=== PATIENT | male | born 1960 | race Caucasian/White ===

== ENCOUNTER 2021-10-11 23:38 | Observation (INO) | payer OTHER, MEDICARE, SELFPAY ==
--- NOTE | ~2021-10-11 | XR_ITS ---
XR chest 1V portable 10/12/2021 00:24 Indication: Shortness of breath. Covid Infection. Procedure: AP portable chest Comparison: No prior studies for comparison. Findings: Status post median sternotomy for CABG. Heart size normal. There is bibasilar atelectasis. No focal pneumonia, pleural effusion, edema or pneumothorax. Impression: 1: Bibasilar atelectasis. Reviewed, dictated and finalized at location D. ENT PUSHER Impression: 1: Bibasilar atelectasis.
[2021-10-11 23:41] VITALS: BP 113/71; PULSE 88; RESP 25; TEMP 36.4; O2SAT 97
[2021-10-11 23:49] VITALS: O2SAT 97
[2021-10-12] VITALS (18 sets, daily range): BP systolic 108–136; BP diastolic 61–81; PULSE 71–112; RESP 16–25; TEMP 36.2–36.9; O2SAT 95–100
--- NOTE | 2021-10-12 00:08 | ED.GENADULT ---
HPI - General Adult General Chief complaint: Shortness of Breath/Dyspnea Stated complaint: sob Time Seen by Provider: 10/11/21 23:51 Source: patient Mode of arrival: ambulatory Limitations: no limitations History of Present Illness HPI narrative: Patient presents for evaluation of respiratory symptoms. He indicates he has had difficulty breathing for the last 1 to 2 weeks. He reports SOB, primarily when laying down. He has experienced an occasional nonproductive cough. He denies any leg swelling, chest pain, nausea, vomiting, fever or chills. He states he had a COVID test two days ago and was informed yesterday that the test was positive. His also tested positive for COVID. Tonight he requested she bring him to the ER for further evaluation after he had a near syncopal event when ambulating at home. He is not on home O2. He does not smoke. He has received his J+J COVID vaccine. He has been using mucinex with some improvement in his symptoms thereafter. He is a very poor historian. In terms of his past medical history, he is a very poor historian. After receiving informed consent from patient I contacted his and she provided me with patient's medication list which included medications for hypertension, gout, hyperlipidemia, diabetes mellitus type 2, hypokalemia, insomnia. Patient states that he has multiple specialists at [facility] including pulmonology for which he sees for a stable pulmonary nodule, cardiology, and nephrology for chronic kidney disease. He informs me that he had multiple vessel coronary bypass over a decade ago. He indicates he came to this facility tonight because he did not feel like he could make it all the way to [place] for evaluation. No additional complaints or concerns. Related Data Home Medications Medication Instructions Recorded Confirmed allopurinol 300 mg PO DAILY 10/12/21 aspirin 325 mg PO DAILY 10/12/21 clonidine HCl 0.1 mg PO TID 10/12/21 oraeogy-jfopeuzdio-RSN-caff 1 cap PO Q4-6H PRN 10/12/21 [Ascomp with Codeine] cyclobenzaprine [Flexeril] 10 mg PO TID PRN 10/12/21 empagliflozin [Jardiance] 10 mg PO BID 10/12/21 fenofibrate 150 mg PO DAILY 10/12/21 glipizide 10 mg PO DAILY 10/12/21 hydralazine 50 mg PO BID 10/12/21 insulin glargine U-300 conc 60 unit SUBCUT DAILY 10/12/21 [Toujessica Max U-300 SoloStar] isosorbide mononitrate [Imdur] 30 mg PO DAILY 10/12/21 lisinopril 30 mg PO DAILY 10/12/21 metformin 1,000 mg PO BID 10/12/21 metoprolol succinate 100 mg PO BID 10/12/21 omega 4-ubj-cql-fish oil [Fish Oil] 2 cap PO DAILY 10/12/21 potassium chloride 20 meq PO DAILY 10/12/21 ranolazine [Ranexa] 1,000 mg PO Q12H 10/12/21 rosuvastatin [Crestor] 5 mg PO DAILY 10/12/21 zolpidem 5 mg PO HS PRN 10/12/21 Allergies Allergy/AdvReac Type Severity Reaction Status Date / Time No Known Allergies Allergy Unknown Unverified 09/05/05 12:49 Review of Systems Review of Systems: CONSTITUTIONAL: Denies fever, chills, or sweats. EYES: Denies visual changes, redness, or discharge. ENT: Denies rhinorrhea, congestion, sore throat, or otalgia. CARDIOVASCULAR: Denies chest pain, palpitations, or edema. RESPIRATORY: Reports cough and shortness of breath GASTROINTESTINAL: Denies abdominal pain, nausea, vomiting, or diarrhea. GENITOURINARY: Denies dysuria or hematuria. SKIN: Denies rash or itching. MUSCULOSKELETAL: Denies back pain, joint pain, or myalgia. NEUROLOGIC: Reports feeling as though he may pass out earlier, now resolved. Denies headache, numbness, dizziness, or weakness. PSYCHIATRIC: Denies anxiety or depression. [facility] Past Medical History Medical History (Updated 10/12/21 @ 02:10 by Sheng Botello, STEPHANE, DEYVI) Chronic kidney disease Coronary artery disease Diabetes Gout Hyperlipidemia Hypertension Pulmonary nodule Surgical History Surgical History History of cholecystectomy Family His
[2021-10-12 00:37] LABS: Basophils Percent Auto 0.3 % (0.2-1.2); Eosinophils Percent Auto 0.1 % (0-4.4); Hematocrit 34.4 % (42.0-52.0); Hemoglobin 11.5 g/dL (14.0-18.0); Immature Granulocyte Absolute 0.05 K/mm3 (0.00-0.031); Immature Granulocyte Percent A 0.6 % (0-0.5); Lymphocytes Absolute Auto 0.93 K/mm3 (0.9-3.2); Mean Corpuscular HGB Conc 33.4 g/dl (32-36); Mean Corpuscular Hemoglobin 31.1 pg (26-34); Mean Platelet Volume 11.2 fl (7.4-10.4); Monocytes Absolute Auto 0.6 K/mm3 (0.1-0.6); Monocytes Percent Auto 7.9 % (2.6-8.5); Neutrophils Absolute Auto 6.2 K/mm3 (1.3-6.7); Neutrophils Percent Auto 79.1 % (45.5-73.1); Platelet Count Result 188 k/mm3 (150-375); Red Cell Distribution Width 14.2 % (11.5-14.5); White Blood Count 7.8 K/mm3 (4.5-10.0)
--- NOTE | 2021-10-12 00:48 | PC.NURSE ---
EDP Carry placed pt on 2L of 02 via nasal cannula for comfort.
[2021-10-12 00:50] LABS: Alanine Aminotransferase 28 U/L (4-50); Albumin Level 4.1 g/dL (3.5-5.1); Alkaline Phosphatase 40 U/L (38-126); Anion Gap 11 mmol/L (8-16); Aspartate Amino Transferase 36 U/L (17-59); Bilirubin,Total 0.7 mg/dL (0.2-1.3); Blood Urea Nitrogen 33 mg/dL (9-20); Calcium 8.9 mg/dL (8.4-10.2); Carbon Dioxide 23 mmol/L (22-30); Chloride 101 mmol/L (98-107); Estimated CRCL calculation 40 ml/min; Estimated Glomerular Filt Rate 36; Glucose 247 mg/dL (65-110); Potassium 3.7 mmol/L (3.4-5.0); Sodium 135 mmol/L (137-145)
[2021-10-12 00:51] LABS: INR 1.6; Prothrombin Time 18.3 Seconds (11.1-14.7)
[2021-10-12 00:52] LABS: Partial Thromboplastin Time 45.8 SECONDS (22.3-36.8)
[2021-10-12 00:54] LABS: D Dimer 0.39 ug/mL (<0.48)
[2021-10-12 01:26] LABS: Troponin I 0.066 ng/mL (0.000-0.034)
--- NOTE | 2021-10-12 01:45 | ECG_ITS ---
Measurements Intervals [place] Rate: 76 P: 48 NE: 151 QRS: -37 QRSD: 117 T: 107 QT: 424 QTc: 479 Interpretive Statements SINUS RHYTHM LEFT AXIS DEVIATION INCOMPLETE RIGHT BUNDLE BRANCH BLOCK BORDERLINE ST-T WAVE ABNORMALITY- ANT/HIGH LAT LEADS BASELINE ARTIFACT- I, II, III, AVR, AVL, AVF, V1-V6 BORDERLINE ECG Electronically Signed On 10-12-2021 6:48:02 DRYWALL FINISHER FOREMAN by Mike Chen D.O.
[2021-10-12] MEDS: ASPIRIN 325 MG TABLET PO (02:13)
[2021-10-12] MEDS: SODIUM CHLORIDE 0.9% IV 1,000 ML 75 ML IV CONT (03:32)
[2021-10-12 04:03] LABS: Troponin I 0.063 ng/mL (0.000-0.034)
--- NOTE | 2021-10-12 04:39 | PC.NURSE ---
pt tried to give urine sample, but was unable to void. pt declining straight catheter at this time.
--- NOTE | 2021-10-12 07:10 | PC.NURSE ---
report from angel mckee. pt deny complaints. waiting bed placement. pt denies needs at this time.
[2021-10-12 10:33] LABS: Glucose Point of Care 168 mg/dl (65-105)
--- NOTE | 2021-10-12 11:33 | ADMGEN ---
This patient, Joe Crook, was admitted to [facility] Surg Room 301-01. Patient oriented to hospital policies and general routines including ID bracelet, bed and alarms, visiting hours, pain management, procedures, bathroom and other care routines, personal items, smoking policy, room service/diet, and visiting hours. Information on how to activate the Rapid Response Team has been discussed. Patient are encouraged to report perceived risks to care and to ask questions if they do not understand what they are told or what they should do.
[2021-10-12 12:00] LABS: Hemoglobin A1C 7.4 % (<5.7)
[2021-10-12 12:03] LABS: Glucose Point of Care 205 mg/dl (65-105)
[2021-10-12] MEDS: INSULIN ASPART (*BKC) 100 UNITS/ML SUB-Q ×2 (13:02→18:19)
--- NOTE | 2021-10-12 15:03 | PM.IMHP ---
H&P: HPI History of Present Illness Date/Time: 10/12/21 15:03 Chief Complaint: Presyncope Narrative: Date of admission: 10/12/2021 Joe Crook is a 61-year-old male with a history of coronary artery disease s/p CABG, type 2 diabetes mellitus, hypertension, hyperlipidemia, and stage III CKD who presented to the emergency department on 10/12/2021 stating that he did not feel well, he was dizzy, and he could not breathe. Symptoms of dizziness and difficulty breathing were ongoing for 1 day. He notes that he was diagnosed with COVID-19 on 10/02/2021 and since that time had been feeling poorly. He noted that he has lost his sense of smell and therefore had not been eating or drinking as much. He thought that he might have become dehydrated. He also noted diarrhea ongoing for 1 week. Last night, when he got up to walk from one room in his house to another, he became very dizzy and felt that he might pass out. Therefore, he sat down and rested and the sensation passed. He never lost consciousness. He denies any episodes of chest pain. No diaphoresis, arm pain, jaw pain. He also felt short of breath last night and stated that he required some supplemental oxygen while in the ER, though this was never documented. On presentation to the emergency department, he was mildly tachypneic with additional vital signs stable, H&H mildly decreased, BUN and creatinine elevated, glucose 247, D-dimer within normal limits, troponin mildly elevated at 0.066, EKG without evidence of ST abnormalities, and CXR showed bibasilar atelectasis without focal pneumonia. At the time of my examination, he is feeling much better. He no longer endorses shortness of breath. He denies cough, wheezing, PABLO. He is no longer having diarrhea. He has not had any further episodes of dizziness or lightheadedness. He denies fever or chills. His appetite is good. Remains without chest pain. Review of Systems Review of Systems: All systems reviewed & are unremarkable except as noted in HPI and below PMFSH Past Medical History Medical History (Updated 10/12/21 @ 16:16 by Rosa Fuller PA-C) Chronic kidney disease Coronary artery disease Diabetes Gout Hyperlipidemia Hypertension Pulmonary nodule Surgical History Surgical History (Updated 10/12/21 @ 16:10 by Rosa Fuller PA-C) History of back surgery History of cholecystectomy History of coronary artery bypass graft Family History Family History (Updated 10/12/21 @ 16:10 by Rosa Fuller PA-C) Mother Diabetes mellitus Heart disease Father Diabetes mellitus Social History Social History (Updated 10/12/21 @ 16:12 by Rosa Fuller PA-C) Social History: The patient lives at home with his . 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 His primary care provider is Dr. Fabienne Woods. He designates his , Dolores, as his surrogate decision maker and he would like to be a full code. Smoking packs per day: 1 Smoking cigarettes per day: 20.0 Years smoked: 10 Smoking pack-years: 10.00 Smoking status: Former smoker Tobacco type: cigarettes Additional smoking assessment comments: Quit smoking >30 years ago Alcohol intake: never Substance use: never Living arrangements: with family Gender identity (if verbalized by the patient): Male Sexual Orientation (if Verbalized by the Patient): Straight or Heterosexual Spiritual care concerns: No Meds Home Medications and Allergies Home Medications Medication Instructions Recorded Confirmed Type allopurinol 300 mg PO DAILY 10/12/21 10/12/21 History aspirin 325 mg PO DAILY 10/12/21 10/12/21 History clonidine HCl 0.1 mg PO TID 10/12/21 10/12/21 History ylierde-wdaadjzsoz-NPQ-caff 1 cap PO Q4-6H PRN 10/12/21 10/12/21 History [Ascomp with Codeine] cyclobenzaprine [Flexeril] 10 mg PO TID PRN 10/12/21 10/12/21 History empagliflozin [Jardiance] 10 mg PO BID 10/12/21 10/12/21 History fenofibrate 150 mg PO DAILY 10/12
[2021-10-12 17:22] LABS: Glucose Point of Care 238 mg/dl (65-105)
[2021-10-12] MEDS: hydrALAZINE HCL 50 MG TABLET PO (18:20)
[2021-10-12] MEDS: METOPROLOL SUCCINATE EXT REL 100 MG TABCR PO (21:37)
[2021-10-12] MEDS: EMPAGLIFLOZIN 10 MG TABLET PO (21:37)
[2021-10-12] MEDS: guaiFENesin 12 HR 600 MG TABCR PO (21:37)
[2021-10-12] MEDS: RANOLAZINE 500 MG TAB.ER.12H 1000 MG PO (21:37)
[2021-10-12] MEDS: cloNIDine HCL 0.1 MG TABLET PO (21:38)
[2021-10-13] VITALS (13 sets, daily range): BP systolic 106–153; BP diastolic 63–98; PULSE 66–126; RESP 16–20; TEMP 35.9–37.3; O2SAT 93–99
[2021-10-13 01:39] LABS: Glucose Point of Care 271 mg/dl (65-105)
[2021-10-13] MEDS: ALBUTEROL SULFATE (*SP) INHALER 2 PUFF INHALATION ×3 (03:24→14:31)
[2021-10-13] MEDS: cloNIDine HCL 0.1 MG TABLET PO ×3 (05:26→20:57)
[2021-10-13 06:39] LABS: Basophils Percent Auto 0.3 % (0.2-1.2); Eosinophils Percent Auto 0.5 % (0-4.4); Hematocrit 33.5 % (42.0-52.0); Immature Granulocyte Absolute 0.04 K/mm3 (0.00-0.031); Immature Granulocyte Percent A 0.7 % (0-0.5); Lymphocytes Absolute Auto 1.22 K/mm3 (0.9-3.2); Lymphocytes Percent Auto 20.4 % (18.3-44.2); Mean Corpuscular HGB Conc 32.8 g/dl (32-36); Mean Corpuscular Hemoglobin 31.5 pg (26-34); Mean Platelet Volume 12.1 fl (7.4-10.4); Monocytes Absolute Auto 0.6 K/mm3 (0.1-0.6); Monocytes Percent Auto 9.7 % (2.6-8.5); Neutrophils Absolute Auto 4.1 K/mm3 (1.3-6.7); Neutrophils Percent Auto 68.4 % (45.5-73.1); Platelet Count Result 158 k/mm3 (150-375); Red Blood Count 3.49 M/mm3 (4.6-6.20); Red Cell Distribution Width 14.1 % (11.5-14.5)
[2021-10-13 07:04] LABS: Anion Gap 11 mmol/L (8-16); Blood Urea Nitrogen 32 mg/dL (9-20); Calcium 8.9 mg/dL (8.4-10.2); Carbon Dioxide 25 mmol/L (22-30); Chloride 102 mmol/L (98-107); Estimated CRCL calculation 45 ml/min; Estimated Glomerular Filt Rate 41; Glucose 163 mg/dL (65-110); Potassium 3.7 mmol/L (3.4-5.0); Sodium 138 mmol/L (137-145)
[2021-10-13 08:08] LABS: Glucose Point of Care 162 mg/dl (65-105)
[2021-10-13] MEDS: INSULIN GLARGINE (*BKC) 100 UNITS/ML 38 UNITS SUB-Q (09:28)
[2021-10-13] MEDS: ASPIRIN 325 MG TABLET PO (09:31)
[2021-10-13] MEDS: RANOLAZINE 500 MG TAB.ER.12H 1000 MG PO ×2 (09:31→20:56)
[2021-10-13] MEDS: guaiFENesin 12 HR 600 MG TABCR PO ×2 (09:31→20:55)
[2021-10-13] MEDS: ISOSORBIDE MONONITRATE 30 MG TAB.ER.24H PO (09:32)
[2021-10-13] MEDS: FENOFIBRATE NANOCRYSTALLIZED 145 MG TABLET PO (09:32)
[2021-10-13] MEDS: ROSUVASTATIN 5 MG TABLET PO (09:32)
[2021-10-13] MEDS: ENOXAPARIN 40 MG/0.4 ML SYRINGE SUB-Q (09:32)
[2021-10-13] MEDS: EMPAGLIFLOZIN 10 MG TABLET PO ×2 (09:32→18:21)
[2021-10-13] MEDS: hydrALAZINE HCL 50 MG TABLET PO ×2 (09:32→18:21)
[2021-10-13] MEDS: METOPROLOL SUCCINATE EXT REL 100 MG TABCR PO ×2 (09:33→20:55)
[2021-10-13] MEDS: POTASSIUM CHLORIDE 20 MEQ TABLET.ER PO (09:34)
[2021-10-13 11:57] LABS: Glucose Point of Care 251 mg/dl (65-105)
[2021-10-13] MEDS: INSULIN ASPART (*BKC) 100 UNITS/ML SUB-Q ×2 (12:26→18:19)
--- NOTE | 2021-10-13 14:43 | PM.IMPN ---
Progress Note: A&P Assessment and Plan (1) Pre-syncope: Code(s): R55 - Syncope and collapse Status: Acute Assessment and Plan: No lose of consciousness Suspect 2/2 dehydration due to poor oral intake and diarrhea Blood pressure stable S/p rehydration, encourage adequate p.o. intake Orthostatic blood pressures pending Fall precautions (2) Dehydration: Code(s): E86.0 - Dehydration Status: Acute Assessment and Plan: Secondary to poor p.o. 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 ?DENICE in the setting of dehydration Hold his metformin and lisinopril at this time Renally dose medications and avoid nephrotoxins Monitor (5) Diabetes: Code(s): E11.9 - Type 2 diabetes mellitus without complications Status: Acute Assessment and Plan: Hemoglobin A1c 7.4 Blood sugars 160s-270s Accu-Cheks, sliding scale insulin, hypoglycemic protocol Resume home Lantus with 20% dose reduction Continue home Jardiance Holding metformin and glipizide (6) Elevated troponin I level: Code(s): R77.8 - Other specified abnormalities of plasma proteins Status: Acute Assessment and Plan: Troponin is very mildly elevated with flat trend Reports he has been informed of elevated troponin levels in the past Asymptomatic EKG SR with incomplete BBB ACS not suspected (7) Hypertension: Code(s): I10 - Essential (primary) hypertension Status: Acute Assessment and Plan: Blood pressures stable Continue home clonidine and hydralazine Lisinopril on hold Monitor BP trends and adjust as needed Subjective Date/time seen: 10/13/21 14:43 Review of Systems Review of Systems: All systems reviewed & are unremarkable except as noted in HPI and below Exam Const: General: no acute distress, alert and awake Orientation/consciousness: patient oriented x3 HENMT: Head: normocephalic and atraumatic Ears: hearing grossly normal bilaterally and external ears normal Face and sinus: face symmetric Mouth: Yes Normal oral and palatal mucosa present Neck: Neck: full ROM, trachea midline and no JVD Resp: Effort & Inspection: normal respiratory effort Auscultation: clear to auscultation bilaterally Cardio: Jugular venous distension: no JVD Rate: regular rate Rhythm: regular rhythm Heart sounds: S1 normal heart sound present and S2 normal heart sound present GI: GI Palp: Yes Soft to palpation Auscultation: normal bowel sounds : General: Yes no CVA tenderness Skin: General skin exam: normal color Rashes: no rashes Neuro: General: patient oriented x3 Speech: normal speech Extrem: General: full ROM and no clubbing, cyanosis or edema Psych: Appearance: grossly normal Affect: normal affect Judgement: Good judgement present (Psych) Objective Data Vital Signs Vital Signs: Vital Signs - 24 hr 10/12/21 16:00 10/12/21 20:00 10/12/21 21:37 Temperature 36.4 C 36.9 C Pulse Rate 84 92 91 Respiratory Rate 18 20 Blood Pressure 135/64 122/69 Pulse Oximetry 95 95 10/13/21 00:00 10/13/21 04:00 10/13/21 08:00 Temperature 37.3 C 36.5 C 36.4 C L Pulse Rate 88 70 77 Respiratory Rate 18 20 16 Blood Pressure 134/63 131/65 134/76 Pulse Oximetry 96 97 93 10/13/21 08:31 10/13/21 09:33 10/13/21 11:58 Temperature 35.9 C L Pulse Rate 77 122 H Respiratory Rate 20 Blood Pressure 106/66 Pulse Oximetry 94 97 Intake/Outp
--- NOTE | 2021-10-13 17:03 | ECG_ITS ---
Measurements Intervals [place] Rate: 110 P: MI: 0 QRS: -55 QRSD: 125 T: 69 QT: 368 QTc: 498 Interpretive Statements ATRIAL FLUTTER/TACHYCARDIA WITH RAPID VENTRICULAR RESPONSE RIGHT BUNDLE BRANCH BLOCK BASELINE WANDER- V1-V3 LEFT ANTERIOR FASCICULAR BLOCK ABNORMAL ECG Electronically Signed On 10-13-2021 20:14:09 CLARK DRIVER by Mike Chen D.O.
[2021-10-13 17:07] LABS: Glucose Point of Care 270 mg/dl (65-105)
[2021-10-13 23:31] LABS: Glucose Point of Care 245 mg/dl (65-105)
[2021-10-14] VITALS (10 sets, daily range): BP systolic 101–137; BP diastolic 69–79; PULSE 83–118; RESP 16–18; TEMP 36–36.5; O2SAT 92–96
--- NOTE | 2021-10-14 | ECHO_ITS ---
Patient Info Name: Joe Crook Age: 61 years : 1960 Gender: Male Ht: 72 in Wt: 220 lbs BSA: 2.27 m2 HR: 83 bpm BP: 133 / 72 mmHg Technical Quality: Good Exam Date: 10/14/2021 8:40 AM Exam Location: [facility] Pulmonary Exam Room: 301 Patient Status: Outpatient Admit Date: 10/12/2021 Staff Ordering Physician: Helena Grace MD Commercial Sales Consultant: JUAN Attending Provider: Rosa Fuller PA-C Exam Type: CA echo doppler color flow Study Info Indications - ELEVATED TROP Complete two-dimensional, color flow and Doppler transthoracic echocardiogram is performed. Summary 1. Complete two-dimensional, color flow and Doppler transthoracic echocardiogram is performed. 2. Left ventricular systolic function is normal, estimated at 50-55%. 3. There is moderate concentric increased left ventricular wall thickness. 4. The left ventricular diastolic function is grade II diastolic dysfunction. 5. There is mild aortic valve sclerosis. 6. There is mild mitral valve regurgitation. 7. There is mild tricuspid valve regurgitation. 8. No pulmonary hypertension, estimated pulmonary arterial systolic pressure is 15 mmHg. Left Ventricle Left ventricular chamber dimension is normal. Left ventricular systolic function is normal, estimated at 50-55%. There is moderate concentric increased left ventricular wall thickness. Left ventricular septal wall motion is normal. The left ventricular diastolic function is grade II diastolic dysfunction. Right Ventricle Right ventricular chamber dimension is normal. Right ventricular systolic function is normal. Left Atria Left atrial chamber dimension is normal. Right Atria Right atrial chamber dimension is normal. Atrial Septum Intact interatrial septum visualized by color flow imaging. Aortic Valve The aortic valve is trileaflet. There is mild aortic valve sclerosis. There is no aortic valve stenosis. There is no aortic valve regurgitation. Pulmonic Valve The pulmonic valve is normal. There is no pulmonic valve stenosis. There is no pulmonic regurgitation. Mitral Valve The mitral valve has normal leaflets. There is no mitral valve stenosis. There is mild mitral valve regurgitation. Tricuspid Valve The tricuspid valve leaflets are normal. There is no significant tricuspid valve stenosis. There is mild tricuspid valve regurgitation. No pulmonary hypertension, estimated pulmonary arterial systolic pressure is 15 mmHg. Pericardium/Pleural The pericardium appears normal. There is no pericardial effusion. Inferior Vena Cava Normal inferior vena cava with >50% collapse upon inspiration consistent with normal right atrial pressure, 5 mmHg. Aorta The aortic root size at the sinus of Valsalva is normal. The prox ascending aorta size is normal. Left Ventricular Outflow Tract Name Value Normal LVOT 2D LVOT Diameter 2.4 cm LVOT Doppler LVOT Peak Gradient 7 mmHg LVOT Mean Gradient 3 mmHg LVOT VTI 17 cm LVOT VTI/AV VTI Ratio
[2021-10-14] MEDS: ALBUTEROL SULFATE (*SP) INHALER 2 PUFF INHALATION ×3 (02:37→15:02)
[2021-10-14] MEDS: cloNIDine HCL 0.1 MG TABLET PO (06:43)
[2021-10-14 08:36] LABS: Glucose Point of Care 175 mg/dl (65-105)
[2021-10-14 08:56] LABS: Anion Gap 14 mmol/L (8-16); Blood Urea Nitrogen 34 mg/dL (9-20); Calcium 9.4 mg/dL (8.4-10.2); Carbon Dioxide 22 mmol/L (22-30); Chloride 102 mmol/L (98-107); Estimated CRCL calculation 42 ml/min; Estimated Glomerular Filt Rate 38; Glucose 169 mg/dL (65-110); Potassium 3.9 mmol/L (3.4-5.0); Sodium 138 mmol/L (137-145)
[2021-10-14] MEDS: glipiZIDE 5 MG TABLET 10 MG PO (10:29)
[2021-10-14] MEDS: ASPIRIN 325 MG TABLET PO (10:29)
[2021-10-14] MEDS: lisinopriL 10 MG TABLET 30 MG PO (10:30)
[2021-10-14] MEDS: METOPROLOL SUCCINATE EXT REL 100 MG TABCR PO (10:30)
[2021-10-14] MEDS: hydrALAZINE HCL 50 MG TABLET PO (10:30)
[2021-10-14] MEDS: OMEGA 3 POLYUNSAT FATTY ACIDS 1 GM CAP 2 GM PO (10:30)
[2021-10-14] MEDS: RANOLAZINE 500 MG TAB.ER.12H 1000 MG PO (10:30)
[2021-10-14] MEDS: ROSUVASTATIN 5 MG TABLET PO (10:30)
[2021-10-14] MEDS: POTASSIUM CHLORIDE 20 MEQ TABLET.ER PO (10:30)
[2021-10-14] MEDS: allopurinoL 300 MG TABLET PO (10:30)
[2021-10-14] MEDS: EMPAGLIFLOZIN 10 MG TABLET PO (10:30)
[2021-10-14] MEDS: guaiFENesin 12 HR 600 MG TABCR PO (10:30)
[2021-10-14] MEDS: ISOSORBIDE MONONITRATE 30 MG TAB.ER.24H PO (10:30)
[2021-10-14] MEDS: FENOFIBRATE NANOCRYSTALLIZED 145 MG TABLET PO (10:30)
[2021-10-14] MEDS: INSULIN GLARGINE (*BKC) 100 UNITS/ML 38 UNITS SUB-Q (10:32)
[2021-10-14] MEDS: ENOXAPARIN 40 MG/0.4 ML SYRINGE SUB-Q (10:32)
--- NOTE | 2021-10-14 10:43 | PM.CNCAR ---
Assessment and Plan Assessment and plan (1) Elevated troponin I level: Code(s): R77.8 - Other specified abnormalities of plasma proteins Status: Acute Assessment and Plan: Minor troponin elevation in a patient with known severe coronary disease as described above. Some slight ST depression was noted on EKG while he was in AFib RVR but he has been asymptomatic, with no chest pain. There has been no ACS. I think this is a nonspecific troponins build due to nonischemic myocardial injury from his overall illness and chronic CAD. Okay for discharge from my point of view. Follow-up with Dr. Conn (2) PAF (paroxysmal atrial fibrillation): Code(s): I48.0 - Paroxysmal atrial fibrillation Status: Acute Assessment and Plan: Patient is showing that he has ongoing PAF, sometimes with RVR specially when up and about. Looks like he may have missed a dose or so of metoprolol during his admission. I will give him an extra 25 mg p.o. now and continue metoprolol XL 100 mg b.i.d. he was started on Eliquis recently as an outpatient but was not listed on his home meds so it has not been continued; will resume Eliquis. (3) Coronary artery disease: Code(s): I25.10 - Atherosclerotic heart disease of [place] coronary artery without angina pectoris Status: Acute Assessment and Plan: History of coronary disease, CABG, overall has done well despite occlusion of his saphenous venous grafts. Stable. (4) COVID: Code(s): U07.1 - COVID-19 Status: Acute Assessment and Plan: Patient seems to be weathering his COVID infection reasonably well, not requiring oxygen. Treatment per hospitalist. History of Present Illness History of Present Illness Consult date/time: 10/14/21 10:43 Requesting physician: Kellie Briscoe Consult reason: Other (History of CABG, elevated troponins) Reason For Visit: Elevated Trop, DENICE Narrative: Joe Boyer this 61-year-old male with history of CAD and CABG admitted with COVID pneumonia, whom we were asked to see at the request of the hospitalist for advice and opinion regarding his mild troponin elevation. He also has history of chronic kidney disease, diabetes, hypertension, paroxysmal atrial fibrillation and hyperlipidemia. The patient was admitted through the emergency room 10/02/2021 with shortness of breath and COVID pneumonia; he tested positive on October 02, 2021. He has not been eating or drinking and had diarrhea. He has been dizzy, presyncopal and short of breath. He was admitted with dehydration, acute kidney injury and COVID pneumonia but is no longer on O2. His troponins are: 0.066 and 0.063. He has been having PAF w/ HR 100-120 BPM. The patient wants to go home; he is feeling fine and back to his normal self. He is not short of breath, and there has been no chest pain or angina. Records from his implementation director, Dr. Conn, were reviewed. He was last seen September 14, 2021. History of CABG, but the 4 saphenous vein grafts are occluded and the only residual remaining graft is a MINOR to the Left anterior descending. The [place] Left anterior descending is subtotally occluded, mid circumflex and ostial RCA are occluded as well, but he had a ejection fraction of 50-55% by echo in August 2019. He was hospitalized apparently sometime recently? with sepsis from UTI, acute renal failure at [facility] and had AFib RVR. Echo at that time apparently showed a reduced ejection fraction and he had some CHF. He has been treated with metoprolol XL 100 mg b.i.d. and Eliquis was added at the time of that office visit. He was in AFib rate in the 90s at that time. Telemetry shows AFib heart rate 100-115, briefly up to 120-130 at times. Review of Systems Constitutional: Constitutional: Reports no additional constitutional complaints Eyes: Eyes: Reports no
[2021-10-14 11:57] LABS: Glucose Point of Care 253 mg/dl (65-105)
[2021-10-14] MEDS: METOPROLOL TARTRATE 25 MG TABLET PO (12:48)
--- NOTE | 2021-10-14 14:30 | PM.DS ---
DS: Admitting Diagnosis Discharge Date 10/14/2021 Admitting Diagnosis Presyncope DS: Discharge Diagnosis Discharge Diagnosis (1) Pre-syncope: Code(s): R55 - Syncope and collapse Status: Acute Assessment and Plan: Patient episode of dizziness upon standing and felt that he might pass out. He was able to sit down the sensation passed without incident. He did not lose consciousness. This was likely due to dehydration secondary to poor oral intake and diarrhea. Blood pressure remains stable, he was not orthostatic. He was rehydrated with IV fluids and was euvolemic on exam. Adequate oral intake encouraged. Fall precautions implemented. (2) Dehydration: Code(s): E86.0 - Dehydration Status: Acute Assessment and Plan: Secondary to poor p.o. intake and diarrhea. Please see above. He received IV fluids and was adequately rehydrated. (3) COVID: Code(s): U07.1 - COVID-19 Status: Acute Assessment and Plan: Reports he tested positive for COVID-19 on 10/02/2021. CXR reviewed without findings consistent for pneumonia. He denied have any oxygen requirements and maintain adequate O2 sats on room air. No COVID-19 specific therapy initiated given his lack of oxygen requirements and onset of illness. He did complete [employer] vaccine in April 2021. Supportive care provided including bronchodilators and expectorants. (4) Chronic kidney disease: Code(s): N18.9 - Chronic kidney disease, unspecified Status: Acute Assessment and Plan: No prior labs available to establish baseline, though he reports history of CKD stage 3. He is established with a quality assurance monitor chassis. Initially concerned that he may have some DENICE given his dehydration, though he had no change in his renal function with rehydration, suggesting that he is at his baseline. Continue to follow with Nephrology as an outpatient. (5) Diabetes: Code(s): E11.9 - Type 2 diabetes mellitus without complications Status: Acute Assessment and Plan: Hemoglobin A1c is 7.4. Blood sugars manage with Accu-Cheks, sliding scale insulin, hypoglycemic protocol during admission. Continue home regimen on discharge including Lantus, Jardiance, metformin, glipizide. Monitor blood sugars with meals. (6) Elevated troponin I level: Code(s): R77.8 - Other specified abnormalities of plasma proteins Status: Acute Assessment and Plan: Troponin mildly elevated with flat trend. The patient was asymptomatic without chest pain. Suspect this to be chronic. He does have a history of severe coronary artery disease. He was seen in consultation by Cardiology. Acute coronary syndrome not suspected. He will need to follow-up with his carding machine feeder, Dr. Conn (7) Hypertension: Code(s): I10 - Essential (primary) hypertension Status: Acute Assessment and Plan: Blood pressures were well controlled with home regimen. Continue clonidine, hydralazine, lisinopril. (8) PAF (paroxysmal atrial fibrillation): Code(s): I48.0 - Paroxysmal atrial fibrillation Status: Acute Assessment and Plan: With occasional episodes of rapid ventricular response, especially when he is mobile. He did receive an extra 25 mg of metoprolol tartrate per Cardiology and his metoprolol succinate 100 mg b.i.d. was continued. Rate seem to improve with this. Home Eliquis to be continued. Follow-up with his carding machine feeder. DS: Summary Hospital Course Hospital Course: Date of admission: 10/12/2021 Date of discharge: 10/14/2021 Joe Crook is a 61-year-old male with a history of coronary artery disease s/p CABG, type 2 diabetes mellitus, hypertension, hyperlipidemia, and stage III CKD who presented to the emergency department on 10/12/2021 with complaints of dizziness and shortness of breath. On presentation to the emergency department, he was mildly tachypneic with additional
== END 2021-10-14 16:00 | disposition home or self-care (01) ==
LOC: ANHED 10-12 02:11 → ANH3MEDSUR 10-12 04:34
PROVIDERS: Physician Assistant; Admitting Provider Internal Medicine; Emergency Provider Nurse Practitioner; PCP Internal Medicine; Visit Provider Internal Medicine
DX: U07.1 COVID-19 (principal); R55 Syncope and collapse; E86.0 Dehydration; I25.10 Atherosclerotic heart disease of native coronary artery without angina pectoris; I48.0 Paroxysmal atrial fibrillation; I12.9 Hypertensive chronic kidney disease with stage 1 through stage 4 chronic kidney disease, or unspecified chronic kidney disease; E11.22 Type 2 diabetes mellitus with diabetic chronic kidney disease; N18.30 Chronic kidney disease, stage 3 unspecified; E78.5 Hyperlipidemia, unspecified; R77.8 Other specified abnormalities of plasma proteins; Z95.1 Presence of aortocoronary bypass graft; Z79.84 Long term (current) use of oral hypoglycemic drugs; Z79.899 Other long term (current) drug therapy; Z79.4 Long term (current) use of insulin
CPT/HCPCS: 36415; 71045; 80048; 80053; 82948; 83036; 84484; 85025; 85380; 85610; 85730; 93005; 93306; 94640; 96360; 96361; 96372; 99285; A9270; G0378; J1650; J1815; J7030

== ENCOUNTER 2023-03-21 12:11 | Inpatient (IN) | payer OTHER, MEDICARE, SELFPAY ==
[2023-03-21] VITALS (22 sets, daily range): BP systolic 117–177; BP diastolic 70–97; PULSE 113–140; RESP 11–29; TEMP 36.4–36.9; O2SAT 95–100; BMI 32.5
--- NOTE | 2023-03-21 12:20 | ECG_ITS ---
Measurements Intervals [place] Rate: 133 P: ND: 0 QRS: -77 QRSD: 129 T: 23 QT: 332 QTc: 496 Interpretive Statements ATRIAL FIBRILLATION WITH RAPID VENTRICULAR RESPONSE RIGHT BUNDLE BRANCH BLOCK INFERIOR INFARCT, AGE INDETERMINATE BASELINE WANDER- II, III, AVF ABNORMAL ECG COMPARED TO ECG 10/13/2021 17:22:09 ATRIAL FIBRILLATION NOW PRESENT MYOCARDIAL INFARCT FINDING NOW PRESENT Electronically Signed On 03-21-2023 14:13:08 CDT by Mike Chen D.O.
[2023-03-21] MEDS: SODIUM CHLORIDE 0.9% IV 1,000 ML 999 ML IV CONT (12:26)
[2023-03-21 12:49] LABS: Alanine Aminotransferase 25 U/L (6-50); Albumin Level 3.3 g/dL (3.5-5.1); Alkaline Phosphatase 32 U/L (38-126); Anion Gap 11 mmol/L (8-16); Aspartate Amino Transferase 30 U/L (17-59); Bilirubin,Total 0.7 mg/dL (0.2-1.3); Blood Urea Nitrogen 25 mg/dL (9-20); Calcium 7.8 mg/dL (8.4-10.2); Carbon Dioxide 20 mmol/L (22-30); Chloride 109 mmol/L (98-107); Estimated CRCL calculation 43 ml/min; Estimated Glomerular Filt Rate 34; Glucose 260 mg/dL (65-110); Potassium 3.9 mmol/L (3.4-5.0); Sodium 140 mmol/L (137-145)
[2023-03-21 12:51] LABS: INR 1.2; Prothrombin Time 16.3 Seconds (11.1-14.7)
[2023-03-21 13:04] LABS: Basophils Absolute Auto 0.1 K/mm3 (0.0-0.1); Basophils Percent Auto 0.8 % (0.2-1.2); Eosinophils Absolute Auto 0.1 K/mm3 (0-0.3); Eosinophils Percent Auto 0.4 % (0-4.4); Hematocrit 28.9 % (42.0-52.0); Hemoglobin 8.8 g/dL (14.0-18.0); Immature Granulocyte Absolute 0.13 K/mm3 (0.00-0.031); Immature Granulocyte Percent A 1.1 % (0-0.5); Lymphocytes Absolute Auto 1.67 K/mm3 (0.9-3.2); Lymphocytes Percent Auto 13.6 % (18.3-44.2); Mean Corpuscular HGB Conc 30.4 g/dl (32-36); Mean Corpuscular Volume 98.6 fl (80-100); Mean Platelet Volume 11.7 fl (7.4-10.4); Monocytes Absolute Auto 0.8 K/mm3 (0.1-0.6); Monocytes Percent Auto 6.2 % (2.6-8.5); Neutrophils Absolute Auto 9.5 K/mm3 (1.3-6.7); Neutrophils Percent Auto 77.9 % (45.5-73.1); Platelet Count Result 299 k/mm3 (150-375); Red Blood Count 2.93 M/mm3 (4.6-6.20); Red Cell Distribution Width 15.9 % (11.5-14.5); White Blood Count 12.2 K/mm3 (4.5-10.0)
--- NOTE | 2023-03-21 13:24 | ED.GIBLEED ---
HPI - GI Bleed General Chief complaint: GI Bleed Stated complaint: syncope Source: patient Mode of arrival: EMS Limitations: no limitations History of Present Illness HPI Narrative: 62-year-old with a history of A-fib, CAD s/p CABG 12 years ago on Ranexa, here with a syncopal episode this morning. Patient states that he had colonoscopy with polypectomy yesterday at [facility] by Dr. Bae. This morning he had bright red blood associated with some clots and black-colored stool. As per EMS he has initial systolic blood pressure was in the high 60s but the bolus of fluid is back to normal. He complains of chest pain, abdominal pain. He denies any nausea or vomiting or shortness of breath. Did discuss with Dr. Bae as per the colonoscopy report patient has diverticular disease in the descending colon as well as the sigmoid. He had 3 polyps in the cecum one was 2 cm, 1 cm and 5 mm all 3 were removed with snare. Patient states that he has not taken his medication this morning. MD complaint: gross hematochezia Onset (ago): hour(s) (2) Pain Consistency: constant Severity: moderate Relieving factors: none Exacerbating factors: none Context: anticoagulant use and other (Recent polypectomy) Treatments Prior to Arrival: none Related Data Home Medications Medication Instructions Recorded Confirmed allopurinol 300 mg tablet 300 mg PO DAILY 10/12/21 10/12/21 aspirin 325 mg tablet 325 mg PO DAILY 10/12/21 10/12/21 clonidine HCl 0.1 mg tablet 0.1 mg PO TID 10/12/21 10/12/21 cyclobenzaprine 10 mg tablet 10 mg PO TID PRN Pain 10/12/21 10/12/21 empagliflozin 10 mg tablet 10 mg PO BID 10/12/21 10/12/21 (Jardiance) fenofibrate 150 mg capsule 150 mg PO DAILY 10/12/21 10/12/21 glipizide 5 mg tablet 10 mg PO DAILY 10/12/21 10/12/21 hydralazine 50 mg tablet 50 mg PO BID 10/12/21 10/12/21 insulin glargine U-300 conc 300 60 unit subcut DAILY 10/12/21 10/12/21 unit/mL (3 mL) subcutaneous pen (Toujeo Max U-300 SoloStar) isosorbide mononitrate 30 mg 30 mg PO DAILY 10/12/21 10/12/21 tablet,extended release 24 hr lisinopril 30 mg tablet 30 mg PO DAILY 10/12/21 10/12/21 metformin 1,000 mg tablet 1,000 mg PO BID 10/12/21 10/12/21 metoprolol succinate 100 mg 100 mg PO BID 10/12/21 10/12/21 capsule sprinkle, ext. release 24 hr omega 5-asn-xag-fish oil 1,000 mg 2 cap PO DAILY 10/12/21 10/12/21 (120 mg-180 mg) capsule (Fish Oil) potassium chloride 20 mEq 20 meq PO DAILY 10/12/21 10/12/21 tablet,extended release ranolazine 500 mg tablet,extended 1,000 mg PO Q12H 10/12/21 10/12/21 release,12 hr (Ranexa) rosuvastatin 5 mg tablet (Crestor) 5 mg PO DAILY 10/12/21 10/12/21 zolpidem 5 mg tablet 5 mg PO HS PRN difficulty sleeping 10/12/21 10/12/21 apixaban 5 mg tablet (Eliquis) 5 mg PO BID 10/14/21 10/14/21 Allergies Allergy/AdvReac Type Severity Reaction Status Date / Time No Known Allergies Allergy Unknown Verified 10/12/21 11:17 Review of Systems Review of Systems: All systems reviewed & are unremarkable except as noted in HPI and below Constitutional: Constitutional: Reports no additional constitutional complaints Eyes: Eyes: Reports no additional eye complaints ENT: Reports system reviewed and no additional complaints, except as documented Cardiovascular: Cardiovascular: Reports no additional cardiovascular complaints Respiratory: Respiratory: Reports no additional respiratory complaints Gastrointestinal: Gastrointestinal: Reports as per HPI Genitourinary: Genitourinary: Reports no additional male genitourinary complaints Musculoskeletal: Musculoskeletal: Reports no additional musculoskeletal complaints Neurologic: Reports system reviewed and no additional complaints, except as documented Endocrine: Endocrine: Reports no additional endocrine complaints Hematologic/Lymphatic: Hematologic/Lymphatic: Reports no additional hematologic/lymphatic complaints [facility] Past Medical History Medical History (Rev
[2023-03-21] MEDS: ONDANSETRON INJ 4 MG/2 ML VIAL IV PUSH (13:34)
[2023-03-21] MEDS: MORPHINE SULFATE (*CRX) 4 MG/ML INJ IV PUSH ×2 (13:35→14:54)
[2023-03-21] MEDS: LACTATED RINGERS 1,000 ML 125 ML IV CONT ×2 (14:53→20:07)
[2023-03-21] MEDS: METOPROLOL TARTRATE INJ 5 MG/5 ML VIAL 2.5 MG IV PUSH (14:53)
--- NOTE | 2023-03-21 15:01 | ADMGEN ---
This patient, Joe Crook, was admitted to IMU Room 201-01. Patient/family oriented to hospital policies and general routines including ID bracelet, bed and alarms, visiting hours, pain management, procedures, bathroom and other care routines, personal items, smoking policy, room service/diet, and visiting hours. Information on how to activate the Rapid Response Team has been discussed. Patient/Family are encouraged to report perceived risks to care and to ask questions if they do not understand what they are told or what they should do.
[2023-03-21 15:38] LABS: Hematocrit 28.3 % (42.0-52.0); Hemoglobin 8.6 g/dL (14.0-18.0)
[2023-03-21 16:38] LABS: Glucose Point of Care 177 mg/dl (65-105)
--- NOTE | 2023-03-21 16:58 | WPDGICN ---
Assessment and Plan Assessment and plan (1) Acute lower gastrointestinal bleeding: Code(s): K92.2 - Gastrointestinal hemorrhage, unspecified Status: Acute Assessment and Plan: This bleeding is most likely secondary to polypectomy given the fact that it began last 24 hours after the procedure. I explained the patient that in many cases this will stop spontaneously similar to a nose bleed. Will need to observe him at least 24 hours I will start clear liquid diet I explained him that he may need to have a colonoscopy for cautery H&H will be followed serially (2) Atrial fibrillation with rapid ventricular response: Code(s): I48.91 - Unspecified atrial fibrillation Status: Acute Assessment and Plan: Anticoagulant will be held while he is here. Apparently he takes Ranexa. (3) Coronary artery disease: Code(s): I25.10 - Atherosclerotic heart disease of [place] coronary artery without angina pectoris Status: Acute Assessment and Plan: He has history of coronary artery bypass graft. He tells me that he has had chest pain since he came here. He states that the emergency room physician gave morphine which reduce the amount of pain he has but it has not completely gone away. (4) Anticoagulant long-term use: Code(s): Z79.01 - detention (current) use of anticoagulants Status: Acute Assessment and Plan: Anticoagulant was held for 2 days prior to the colonoscopy and will be restarted when appropriate. (5) Syncope: Qualifiers: Syncope type: unspecified Qualified Code(s): R55 - Syncope and collapse Code(s): R55 - Syncope and collapse Status: Acute Assessment and Plan: This morning he had a syncopal episode in the bathroom. EMS found his blood pressure low but it improved with bolus of IV fluids GI Consult Note Consult date/time: 03/21/23 16:58 HPI: Joe Crook is a 62 year old male presented to the emergency room this morning but due to the fact that he had a syncopal episode and was passing blood per rectum. Yesterday he underwent a colonoscopy by Dr. eBthany connolly in [place]. Three polyps were removed from the cecum. Dr. Bethany connolly spoke to the emergency room physician reported that the largest polyp was 2 cm diameter. The patient has been on a anticoagulant because of atrial fibrillation and coronary artery disease. He had not yet restarted it. He denies abdominal pain or nausea or vomiting. He does complain of pain in his chest and in the emergency room was given morphine which she says has cut the pain although has not completely gone. His words his ?heart is hurting? His hemoglobin on arrival in emergency room was 8.8. The last count we have on record here was from 2 years ago when it was 11. The patient had 3 episodes of passing nothing but blood this morning, 1 at 7:00 a.m., 1 at 9:00 a.m. and 1:11 a.m.. He has not seen blood since arrival to the hospital. He is thirsty wishes to have something to drink. Review of Systems Review of Systems: All systems reviewed & are unremarkable except as noted in HPI and below PMFSH Past Medical History Medical History Chronic kidney disease Coronary artery disease History of CABG x5. Follow-up catheterization showed patent MINOR to the Left anterior descending but occlusion of the 4 vein grafts. [place] Left anterior descending is subtotally occluded, mid circumflex and ostial RCA are also occluded. EF 50-55% in January 2019. Diabetes Gout Hyperlipidemia Hypertension PAF (paroxysmal atrial fibrillation) Pulmonary nodule Surgical History Surgical History History of back surgery History of cholecystectomy History of coronary artery bypass graft Family History Family History Mother Diabetes mellitus Heart disease Fat
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
--- NOTE | 2023-03-21 18:29 | ECG_ITS ---
Measurements Intervals [place] Rate: 126 P: [place]: 0 QRS: -70 QRSD: 142 T: 29 QT: 335 QTc: 485 Interpretive Statements ATRIAL FIBRILLATION WITH RAPID VENTRICULAR RESPONSE RIGHT BUNDLE BRANCH BLOCK LEFT ANTERIOR FASCICULAR BLOCK BASELINE ARTIFACT- I, II, III, AVR, AVL, AVF ABNORMAL ECG COMPARED TO ECG 03/21/2023 12:23:41 NO SIGNIFICANT CHANGES Electronically Signed On 03-22-2023 6:46:32 CDT by Mike Chen D.O.
[2023-03-21 19:02] LABS: Hematocrit 27.4 % (42.0-52.0); Hemoglobin 8.5 g/dL (14.0-18.0)
[2023-03-21 19:26] LABS: Troponin I 0.316 ng/mL (0.000-0.034)
[2023-03-21 19:47] LABS: Glucose Point of Care 155 mg/dl (65-105)
[2023-03-21] MEDS: METOPROLOL TARTRATE 50 MG TAB 100 MG PO (20:07)
[2023-03-21 21:05] LABS: Hematocrit 25.3 % (42.0-52.0); Hemoglobin 7.7 g/dL (14.0-18.0)
[2023-03-21 21:42] LABS: Troponin I 0.746 ng/mL (0.000-0.034)
[2023-03-22] VITALS (16 sets, daily range): BP systolic 106–150; BP diastolic 55–85; PULSE 82–122; RESP 18–22; TEMP 36–36.8; O2SAT 95–100
[2023-03-22 05:58] LABS: Glucose Point of Care 146 mg/dl (65-105)
--- NOTE | 2023-03-22 06:27 | PC.NURSE ---
Paper documentation exists on this patient due to [facility] downtime on 03/21/23 2100- 03/22/23 0637
[2023-03-22 06:48] LABS: Basophils Absolute Auto 0.2 K/mm3 (0.0-0.1); Basophils Percent Auto 1.8 % (0.2-1.2); Eosinophils Absolute Auto 0.1 K/mm3 (0-0.3); Eosinophils Percent Auto 0.8 % (0-4.4); Hemoglobin 7.6 g/dL (14.0-18.0); Immature Granulocyte Absolute 0.08 K/mm3 (0.00-0.031); Immature Granulocyte Percent A 0.9 % (0-0.5); Lymphocytes Percent Auto 26.8 % (18.3-44.2); Mean Corpuscular HGB Conc 29.2 g/dl (32-36); Mean Corpuscular Hemoglobin 29.7 pg (26-34); Mean Corpuscular Volume 101.6 fl (80-100); Mean Platelet Volume 11.9 fl (7.4-10.4); Monocytes Absolute Auto 0.8 K/mm3 (0.1-0.6); Monocytes Percent Auto 8.8 % (2.6-8.5); Neutrophils Absolute Auto 5.4 K/mm3 (1.3-6.7); Neutrophils Percent Auto 60.9 % (45.5-73.1); Platelet Count Result 217 k/mm3 (150-375); Red Blood Count 2.56 M/mm3 (4.6-6.20); Red Cell Distribution Width 16.1 % (11.5-14.5); White Blood Count 8.9 K/mm3 (4.5-10.0)
[2023-03-22 06:59] LABS: Anion Gap 6 mmol/L (8-16); Blood Urea Nitrogen 26 mg/dL (9-20); Calcium 7.7 mg/dL (8.4-10.2); Carbon Dioxide 22 mmol/L (22-30); Chloride 110 mmol/L (98-107); Estimated CRCL calculation 62 ml/min; Estimated Glomerular Filt Rate 51; Glucose 145 mg/dL (65-110); Potassium 4.2 mmol/L (3.4-5.0); Sodium 138 mmol/L (137-145)
--- NOTE | 2023-03-22 08:48 | PM.CNCAR ---
Assessment and Plan Assessment and plan (1) Type 2 MO (myocardial infarction): Code(s): I21.A1 - Myocardial infarction type 2 Status: Acute Assessment and Plan: Patient had anginal chest pain and has an elevated troponin up to 1.10. This is a type 2 MO due to his AFib RVR, hypotension and moderate anemia in the face of underlying CAD. This is not an ACS event. He is known to have his entire myocardium supplied by his LAD, so understandably in the face of severe tachycardia and anemia he would be ischemic. Mr. Spring is feeling much better this morning since his heart rate is controlled, and he is free of chest discomfort. It is important to avoid further significant tachycardia and anemia in this patient with known significant CAD and if colonoscopy and clipping can help prevent future bleeding then the risk (which I think is low to moderate) is worth the benefit. (2) Atrial fibrillation with rapid ventricular response: Code(s): I48.91 - Unspecified atrial fibrillation Status: Acute Assessment and Plan: History of PAF, in AFib RVR last night which was eventually controlled with Cardizem 5 mg per hour --increased Cardizem drip to 10 milligrams/hour. --continue metoprolol 100 mg b.i.d. --resuming Multaq --can also provide metoprolol 5 mg IV push p.r.n. for heart rates greater than 110 beats per minute --continue to hold Eliquis (3) Preoperative cardiovascular examination: Code(s): Z01.810 - Encounter for preprocedural cardiovascular examination Status: Acute Assessment and Plan: Mr. Spring is feeling much better this morning since his heart rate is controlled, and he is free of chest discomfort. It is important to avoid further significant tachycardia and anemia in this patient with known significant CAD. --If colonoscopy and clipping of a source of bleeding can help prevent future bleeding then the low to moderate risk is worth the benefit. (4) Acute lower gastrointestinal bleeding: Code(s): K92.2 - Gastrointestinal hemorrhage, unspecified Status: Acute Assessment and Plan: Acute GI bleeding associated with hypotension and syncope, and anemia 1 day after polypectomy. Followed by Dr. Peoples. May need colonoscopy and clipping of a bleeding site. No bleeding since admission. BP stable after IV fluids. (5) Coronary artery disease: Code(s): I25.10 - Atherosclerotic heart disease of [place] coronary artery without angina pectoris Status: Acute Assessment and Plan: History of CAD and CABG. At heart catheterization a couple years ago showed all vein grafts were occluded and the only patent vessel was a MINOR to the Left anterior descending. (the [place] Left anterior descending is septal occluded, mid circumflex and ostial RCA are occluded. ) He has not needed any nitroglycerin for years, until last night when he had AFib RVR in the face of severe anemia. --aspirin on hold History of Present Illness History of Present Illness Consult date/time: 03/22/23 08:48 Reason For Visit: Syncope/Lower GI Bleed/Afib with RVR Narrative: Joe Crook is a 62 y.o. male whom I was asked to see at the request of Dr Peoples for cardiology clearance for a colonoscopy. The patient has a complicated past medical history with CABG, AFib, chronic kidney disease. On March 20 the patient had a colonoscopy and polypectomy at [facility] by Dr. Bae. His Eliquis has been held for several days, and his aspirin was also held couple days prior to his colonoscopy. Yesterday he had bright red blood per rectum with clots and a syncopal episode. EMS found his blood pressure in the high 60s and he was resuscitated with IV fluids. Dr. Peoples saw the patient and may need to have a colonoscopy for cautery if the bleeding does not cease. In the meantime he is AFib has had a rapid ventricular response. He has had some anginal chest discomfort associated with his
[2023-03-22] MEDS: METOPROLOL SUCCINATE EXT REL 100 MG TABCR PO ×2 (09:19→20:30)
[2023-03-22] MEDS: DRONEDARONE HCL 400 MG TABLET PO (09:19)
[2023-03-22] MEDS: polyethylene glycoL 3350 238 GM BOTTLE PO ×2 (09:23→17:14)
[2023-03-22 12:45] LABS: Glucose Point of Care 215 mg/dl (65-105)
--- NOTE | 2023-03-22 12:50 | PM.IMPN ---
Progress Note: A&P Assessment and Plan (1) Type 2 WI (myocardial infarction): Code(s): I21.A1 - Myocardial infarction type 2 Status: Acute Assessment and Plan: Patient had anginal chest pain and has an elevated troponin up to 1.10. This is a type 2 WI due to his AFib RVR, hypotension and moderate anemia in the face of underlying CAD. Appreciate cardiology input (2) Atrial fibrillation with rapid ventricular response: Code(s): I48.91 - Unspecified atrial fibrillation Status: Acute Assessment and Plan: History of PAF, in AFib RVR last night which was eventually controlled with Cardizem 5 mg per hour --increased Cardizem drip to 10 milligrams/hour. --continue metoprolol 100 mg b.i.d. --resuming Multaq --can also provide metoprolol 5 mg IV push p.r.n. for heart rates greater than 110 beats per minute --continue to hold Eliquis (3) Acute lower gastrointestinal bleeding: Code(s): K92.2 - Gastrointestinal hemorrhage, unspecified Status: Acute Assessment and Plan: Acute GI bleeding associated with hypotension and syncope, and anemia 1 day after polypectomy. Followed by Dr. Peoples. May need colonoscopy and clipping of a bleeding site. No bleeding since admission. BP stable after IV fluids. GI consult. Further plan per GI Subjective Date/time seen: 03/22/23 12:50 Interval history: No bleeding per rectum noticed Review of Systems Review of Systems: All systems reviewed & are unremarkable except as noted in HPI and below Exam Const: General: cooperative and comfortable; No healthy appearing or confusion Orientation/consciousness: oriented to person, patient oriented x3 and No confusion HENMT: Mouth: Yes moist mucous membranes Eyes: General: appearance abnormal, both eyes Other: Disfigurement of the right eye Neck: Neck: supple and no JVD Thyroid: thyroid normal Carotids: no bruits Resp: Effort & Inspection: normal respiratory effort Auscultation: not clear to auscultation bilaterally and rales (Scattered rales) Cardio: Rate: regular rate and tachycardic Rhythm: regular rhythm and abnormal rhythm irregularly irregular Heart sounds: no murmurs Other: forFeet are cool to touch, but do not appear ischemic. dorsalis pedis pulses are diminished but intact GI: Inspection: normal to inspection GI Palp: No abdominal tenderness Skin: Wounds: wounds noted Other: Well-healed wounds of his lower extremities, arms, right hand, missing a finger on the right hand Neuro: General: oriented to person, patient oriented x3 and No confusion Extrem: Right lower extremity: edema Left lower extremity: edema Other: Trace lower extremity edema Psych: Appearance: grossly normal Mental Status: mental status grossly normal Objective Data Vital Signs Vital Signs: Vital Signs - 24 hr 03/21/23 12:54 03/21/23 13:00 03/21/23 13:01 Temperature Pulse Rate 117 H 123 H 128 H Respiratory Rate 27 H 28 H 29 H Blood Pressure 157/94 H Pulse Oximetry 100 100 100 Oxygen Delivery 03/21/23 13:16 03/21/23 13:17 03/21/23 13:30 Temperature Pulse Rate 113 H 117 H 134 H Respiratory Rate 26 H 23 H 24 H Blood Pressure 177/90 H Pulse Oximetry 100 100 100 Oxygen Delivery 03/21/23 13:45 03/21/23 13:47 03/21/23 14:00 Temperature Pulse Rate 137 H 125 H 126 H Respiratory Rate 21 H 11 L 12 Blood Pressure 137/71 Pulse Oximetry 100 100 100 Oxygen Delivery 03/21/23 14:01 03/21/23 14:15 03/21/23 14:53 Temperature Pulse Rate 140 H 128 H 129 H Respiratory Rate 11 L 20 Blood Pressure 144/97 H 144/97 H Pulse Oximetry 100 100 Oxygen Delivery 03/21/23 14:44 03/21/23 16:48 03/21/23 16:00 Temperature 97.6 F 98.5 F Pulse Rate 126 H 122 H 136 H Respiratory Rate 22 H 20 Blood Pressure 128/72 117/73 Pulse Oximetry 100 98 Oxygen Delivery 03/21/23 18:00 03/21/23 16:00 03/21/23 19:45 Temperature 97.7 F Pul
[2023-03-22] MEDS: INSULIN ASPART (*BKC) 100 UNITS/ML SUB-Q (13:07)
--- NOTE | 2023-03-22 14:28 | WPDGIPROGNO ---
Progress Note: A&P Assessment and Plan (1) Acute lower gastrointestinal bleeding: Code(s): K92.2 - Gastrointestinal hemorrhage, unspecified Status: Acute Assessment and Plan: This bleeding is most likely secondary to polypectomy given the fact that it began last 24 hours after the procedure. I explained the patient that in many cases this will stop spontaneously similar to a nose bleed. Will need to observe him at least 24 hours I will start clear liquid diet I explained him that he may need to have a colonoscopy for cautery H&H will be followed serially 03/22/2023 hemoglobin down to 7.7. He has not seen any further blood in his stools. (2) Atrial fibrillation with rapid ventricular response: Code(s): I48.91 - Unspecified atrial fibrillation Status: Acute Assessment and Plan: Anticoagulant will be held while he is here. Apparently he takes Ranexa. Ventricular rate is still over 100. He has been off his metoprolol. He has been started on Cardizem. (3) Coronary artery disease: Code(s): I25.10 - Atherosclerotic heart disease of [place] coronary artery without angina pectoris Status: Acute Assessment and Plan: He has history of coronary artery bypass graft. He tells me that he has had chest pain since he came here. He states that the emergency room physician gave morphine which reduce the amount of pain he has but it has not completely gone away. 03/22/2023 because of his continuing chest discomfort and history of severe coronary artery disease, will consult Cardiology. 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 (5) Syncope: Qualifiers: Syncope type: unspecified Qualified Code(s): R55 - Syncope and collapse Code(s): R55 - Syncope and collapse Status: Acute Assessment and Plan: This morning he had a syncopal episode in the bathroom. EMS found his blood pressure low but it improved with bolus of IV fluids Plan Because of drop in hemoglobin I told that we ought to do colonoscopy to clip or cauterize or would do whatever can be done to prevent further bleeding given the fact that he will need to get back on his anticoagulant therapy. I will get Cardiology to consult. Subjective Date/time seen: 03/22/23 14:28 he has had no evidence of bleeding during the night. There has been a further drop in his hemoglobin to 7.7. He told me this morning that he still had some discomfort in his chest which was constant. He says his heart is hurting because he has not been getting his heart medicines. I did note that he has not been receiving metoprolol, isosorbide, and hydralazine. I told him that we will get Cardiology involved. Exam Const: General: cooperative and healthy appearing Orientation/consciousness: patient oriented x3 HENMT: Head: normal to inspection Ears: hearing grossly normal bilaterally Mouth: Yes Normal oral and palatal mucosa present Eyes: General: appearance normal, both eyes and all related structures Neck: Neck: normal visual inspection Chest: Chest palpation & inspection: normal inspection of the chest Resp: Effort & Inspection: normal respiratory effort Auscultation: clear to auscultation bilaterally Cardio: Rate: regular rate Rhythm: abnormal rhythm irregularly irregular GI: Inspection: normal to inspection and obesity Auscultation: normal bowel sounds Skin: General skin exam: normal color and no jaundice Neuro: General: patient oriented x3 Speech: normal speech Objective Data Vital Signs Vital Signs: Vital Signs - 24 hr 03/21/23 14:53 03/21/23 14:44 03/21/23 16:48 Temperature 36.4 C 36.9 C Pulse Rate 129 H 126 H 122 H Respiratory Rate 22 H 20 Blood Pressure 128/72 117/73 Pulse Oximetry 1
[2023-03-22] MEDS: dilTIAZem 100 MG/100 ML 100 MG/100 ML BAG 10 MG IV CONT (15:07)
[2023-03-22 16:53] LABS: Glucose Point of Care 198 mg/dl (65-105)
[2023-03-23] VITALS (22 sets, daily range): BP systolic 94–136; BP diastolic 34–84; PULSE 79–910; RESP 16–201; TEMP 35.9–37.1; O2SAT 93–100
--- NOTE | 2023-03-23 00:18 | PC.NURSE ---
Pt states he is unable to finish bowel prep. He reports 4 liquid, but still dark brown/black stools, RN has not visualized. Encouraged pt to continue to drink, but he states he may vomit. Pt states he almost doesn't care if they are unable to do colonoscopy in the morning.
[2023-03-23] MEDS: dilTIAZem 100 MG/100 ML 100 MG/100 ML BAG 10 MG IV CONT (00:29)
[2023-03-23 04:49] LABS: Basophils Absolute Auto 0.1 K/mm3 (0.0-0.1); Basophils Percent Auto 1.3 % (0.2-1.2); Eosinophils Absolute Auto 0.1 K/mm3 (0-0.3); Hematocrit 22.3 % (42.0-52.0); Immature Granulocyte Absolute 0.12 K/mm3 (0.00-0.031); Immature Granulocyte Percent A 1.2 % (0-0.5); Lymphocytes Absolute Auto 2.43 K/mm3 (0.9-3.2); Lymphocytes Percent Auto 23.8 % (18.3-44.2); Mean Corpuscular HGB Conc 30.5 g/dl (32-36); Mean Corpuscular Hemoglobin 29.4 pg (26-34); Mean Corpuscular Volume 96.5 fl (80-100); Mean Platelet Volume 10.9 fl (7.4-10.4); Monocytes Absolute Auto 0.9 K/mm3 (0.1-0.6); Monocytes Percent Auto 8.3 % (2.6-8.5); Neutrophils Absolute Auto 6.6 K/mm3 (1.3-6.7); Neutrophils Percent Auto 64.4 % (45.5-73.1); Nucleated Red Blood Cells Absolute Auto 0.1 K/mm3 (0.0-0.012); Nucleated Red Blood Cells Perc 0.7 % (0.0-0.2); Platelet Count Result 228 k/mm3 (150-375); Red Blood Count 2.31 M/mm3 (4.6-6.20); Red Cell Distribution Width 15.6 % (11.5-14.5); White Blood Count 10.2 K/mm3 (4.5-10.0)
[2023-03-23 04:56] LABS: Hemoglobin 6.8 g/dL (14.0-18.0)
[2023-03-23] MEDS: DRONEDARONE HCL 400 MG TABLET PO (05:56)
--- NOTE | 2023-03-23 09:17 | PM.PNCARD ---
Progress Note: A&P Assessment and Plan (1) Type 2 AR (myocardial infarction): Code(s): I21.A1 - Myocardial infarction type 2 Status: Acute Assessment and Plan: Patient had anginal chest pain and has an elevated troponin up to 1.10. This is a type 2 AR due to his AFib RVR, hypotension and moderate anemia in the face of underlying CAD. This is not an ACS event. He is known to have his entire myocardium supplied by his MINOR graft, so understandably in the face of severe tachycardia and anemia he would be ischemic. Mr. Spring is feeling better this morning since his heart rate is controlled, with no further angina. It is important to avoid further significant tachycardia and anemia in this patient with known significant CAD. -- Agree with blood transfusion -- check echo (2) Atrial fibrillation with rapid ventricular response: Code(s): I48.91 - Unspecified atrial fibrillation Status: Acute Assessment and Plan: History of PAF, in AFib RVR last night which was eventually controlled with Cardizem 5 mg per hour -- continue Cardizem drip 5 milligrams/hour. --continue metoprolol 100 mg b.i.d. --resumed Multaq --can also provide metoprolol 5 mg IV push p.r.n. for heart rates greater than 110 beats per minute --continue to hold Eliquis (3) Preoperative cardiovascular examination: Code(s): Z01.810 - Encounter for preprocedural cardiovascular examination Status: Acute Assessment and Plan: Mr. Spring is feeling better this morning since his heart rate is controlled, and he is free of chest discomfort. It is important to avoid further significant tachycardia and anemia in this patient with known significant CAD. --If colonoscopy and clipping of a source of bleeding can help prevent future bleeding then the low to moderate risk is worth the benefit. (4) Acute lower gastrointestinal bleeding: Code(s): K92.2 - Gastrointestinal hemorrhage, unspecified Status: Acute Assessment and Plan: Acute GI bleeding associated with hypotension and syncope, and anemia 1 day after polypectomy. Followed by Dr. Peoples. May need colonoscopy and clipping of a bleeding site. No bleeding since admission. BP stable after IV fluids. H&H still dropping. -- Agree with blood transfusion -- continue to check she serial H&H (5) Coronary artery disease: Code(s): I25.10 - Atherosclerotic heart disease of [place] coronary artery without angina pectoris Status: Acute Assessment and Plan: History of CAD and CABG. At heart catheterization a couple years ago showed all vein grafts were occluded and the only patent vessel was a MINOR to the Left anterior descending. (the [place] Left anterior descending is subtotally occluded, mid circumflex and ostial RCA are occluded. ) He has not needed any nitroglycerin for years, until earlier this admission when he had AFib RVR in the face of severe anemia. --aspirin on hold Subjective Date/time seen: 03/23/23 09:17 Interval history: Follow-up for CAD, type 2 AR due to hypotension, severe anemia and AFib RVR. The patient was admitted for GI bleeding after a polypectomy resulting in syncope, hypotension. He developed AFib RVR and had chest pain. He bumped his troponins up to 1.1. After control of his heart rate and improvement of blood pressure has been free of chest discomfort. Followed by hydropress operator Dr. Conn. H/O CABG but all [place] coronary vessels occluded and all grafts occluded except for the MINOR to the LAD. H/O PAF, CKD, EF 50-55% November 2021. Date of service 03/23/2023: patient did not sleep well but has no complaints of shortness of breath, angina. He is still passing clots particularly with his colon prep. Still auto diuresing. Blood pressure stable. Hematocrit down to 22; unit PRBCs ordered but having trouble with venous access. On room air. Telemetry shows AFib rate 95-105, on Cardizem 5 milligrams/hour
[2023-03-23] MEDS: METOPROLOL SUCCINATE EXT REL 100 MG TABCR PO ×2 (10:21→20:30)
[2023-03-23 10:35] LABS: Glucose Point of Care 197 mg/dl (65-105)
--- NOTE | 2023-03-23 11:23 | PM.IMPN ---
Progress Note: A&P Assessment and Plan (1) Type 2 DC (myocardial infarction): Code(s): I21.A1 - Myocardial infarction type 2 Status: Acute Assessment and Plan: Patient had anginal chest pain and has an elevated troponin up to 1.10. This is a type 2 DC due to his AFib RVR, hypotension and moderate anemia in the face of underlying CAD. Appreciate cardiology input (2) Atrial fibrillation with rapid ventricular response: Code(s): I48.91 - Unspecified atrial fibrillation Status: Acute Assessment and Plan: History of PAF, in AFib RVR last night which was eventually controlled with Cardizem 5 mg per hour --increased Cardizem drip to 10 milligrams/hour. --continue metoprolol 100 mg b.i.d. --resuming Multaq --can also provide metoprolol 5 mg IV push p.r.n. for heart rates greater than 110 beats per minute --continue to hold Eliquis given GI bleed (3) Acute lower gastrointestinal bleeding: Code(s): K92.2 - Gastrointestinal hemorrhage, unspecified Status: Acute Assessment and Plan: Acute GI bleeding associated with hypotension and syncope, and anemia 1 day after polypectomy. Followed by Dr. Peoples. May need colonoscopy and clipping of a bleeding site. No bleeding since admission. BP stable after IV fluids. GI consult. Further plan per GI. 1 unit of blood transfusion today. Possible colonoscopy later today Subjective Date/time seen: 03/23/23 11:23 Interval history: Feeling short of breath this morning Review of Systems Review of Systems: All systems reviewed & are unremarkable except as noted in HPI and below Exam Const: General: cooperative and comfortable; No healthy appearing or confusion Orientation/consciousness: oriented to person, patient oriented x3 and No confusion HENMT: Mouth: Yes moist mucous membranes Eyes: General: appearance abnormal, both eyes Other: Disfigurement of the right eye Neck: Neck: supple and no JVD Thyroid: thyroid normal Carotids: no bruits Resp: Effort & Inspection: normal respiratory effort Auscultation: not clear to auscultation bilaterally and rales (Scattered rales) Cardio: Rate: regular rate and tachycardic Rhythm: regular rhythm and abnormal rhythm irregularly irregular Heart sounds: no murmurs Other: forFeet are cool to touch, but do not appear ischemic. dorsalis pedis pulses are diminished but intact GI: Inspection: normal to inspection GI Palp: No abdominal tenderness Skin: Wounds: wounds noted Other: Well-healed wounds of his lower extremities, arms, right hand, missing a finger on the right hand Neuro: General: oriented to person, patient oriented x3 and No confusion Extrem: Right lower extremity: edema Left lower extremity: edema Other: Trace lower extremity edema Psych: Appearance: grossly normal Mental Status: mental status grossly normal Objective Data Vital Signs Vital Signs: Vital Signs - 24 hr 03/22/23 12:00 03/22/23 12:00 03/22/23 15:07 Temperature 97.1 F L Pulse Rate 96 92 94 Respiratory Rate 22 H Blood Pressure 112/62 130/68 Pulse Oximetry 96 Oxygen Delivery 03/22/23 14:00 03/22/23 16:00 03/22/23 16:00 Temperature 97.3 F L Pulse Rate 90 98 95 Respiratory Rate 22 H Blood Pressure 106/55 L Pulse Oximetry 100 Oxygen Delivery 03/22/23 19:47 03/22/23 18:00 03/22/23 20:30 Temperature 98.2 F Pulse Rate 84 87 85 Respiratory Rate 22 H Blood Pressure 128/56 L Pulse Oximetry 98 Oxygen Delivery 03/22/23 23:59 03/23/23 00:29 03/22/23 20:00 Temperature 97.8 F Pulse Rate 84 90 Respiratory Rate 22 H Blood Pressure 116/64 Pulse Oximetry 100 Oxygen Delivery Room Air 03/23/23 00:00 03/23/23 01:40 03/23/23 04:00 Temperature Pulse Rate 79 Respiratory Rate Blood Pressure Pulse Oximetry Oxygen Delivery Room Air Room Air 03/23/23 04:00 03/23/23 05:56 03/22/23 20:00 Temperature 97.2 F L
[2023-03-23] MEDS: TUBING, BLOOD PLUM PUMP TUBING 1 EACH XX (12:46)
[2023-03-23 12:51] LABS: Glucose Point of Care 187 mg/dl (65-105)
[2023-03-23] MEDS: LACTATED RINGERS 1,000 ML 150 ML IV CONT (13:47)
[2023-03-23 13:48] LABS: Glucose Point of Care 167 mg/dl (65-105)
--- NOTE | 2023-03-23 13:55 | SUR.PREOP ---
1325 To endoscopy pre-procedure holding room 5 per stretcher. Alert, cooperative, denies pain, skin warm and dry. Spouse at bedside and accompanied to endoscopy. PRBC infusion on pump 225 cc ltc to left midline catheter. IV cardizem infusing 5mg/hr 50cc ltc per pump to right ac. 1liter LR (clamped and ready for anesthesias use) to left midline port using sterile technique.
--- NOTE | 2023-03-23 14:32 | WPDANESEPPF ---
Anes - Initial Pre Proc Eval Procedure: Operation Date: 03/23/23 15:30 Proposed Procedures p Colonoscopy - Joe Peoples MD Date/Time: 03/23/23 14:32 Surgeon: Curtis Gonzáles MD Pre Op Diagnosis: Syncope/Lower GI Bleed/Afib with RVR Patient Data Age: 62 Gender: M Height: 1.83 m Weight: 109 kg Last Vital Signs Temp 98.3 F 03/23/23 13:30 Pulse 99 03/23/23 13:30 Resp 18 03/23/23 13:30 BP 124/84 03/23/23 13:30 Pulse Ox 100 03/23/23 13:30 O2 Del Method Room Air 03/23/23 13:29 Allergies Allergy/AdvReac Type Severity Reaction Status Date / Time No Known Allergies Allergy Unknown Verified 03/23/23 13:25 Home Medications Medication Instructions Recorded Confirmed Type glipizide 5 mg tablet 5 mg PO DAILY 10/12/21 03/21/23 History hydralazine 50 mg tablet 50 mg PO TID 10/12/21 03/21/23 History insulin glargine U-300 conc 300 60 unit subcut DAILY 10/12/21 03/21/23 History unit/mL (3 mL) subcutaneous pen (Toujeo Max U-300 SoloStar) isosorbide mononitrate 30 mg 30 mg PO BID 10/12/21 03/21/23 History tablet,extended release 24 hr omega 2-xhb-get-fish oil 1,000 mg 1 cap PO BID 10/12/21 03/21/23 History (120 mg-180 mg) capsule (Fish Oil) ranolazine 500 mg tablet,extended 1,000 mg PO Q12H 10/12/21 03/21/23 History release,12 hr (Ranexa) apixaban 5 mg tablet (Eliquis) 5 mg PO BID 10/14/21 03/21/23 History aspirin 81 mg tablet,delayed 81 mg PO DAILY 03/21/23 03/21/23 History release vxeuavgzyi-akozcxm-ojfexjaj 50 1 cap PO Q8H PRN Headache 03/21/23 03/21/23 History mg-325 mg-40 mg capsule docosahexaenoic acid (dha)-epa 120 1 cap PO DAILY 03/21/23 03/21/23 History mg-180 mg capsule dronedarone 400 mg tablet 400 mg PO DAILY 03/21/23 03/21/23 History fenofibrate 160 mg tablet 160 mg PO EVERY OTHER DAY 03/21/23 03/21/23 History ferrous sulfate 325 mg (65 mg 325 mg PO EVERY OTHER DAY 03/21/23 03/21/23 History iron) tablet (FeroSul) icosapent ethyl 1 gram capsule 2 g PO BID 03/21/23 03/21/23 History metoprolol succinate 100 mg 100 mg PO Q12H 03/21/23 03/21/23 History tablet,extended release 24 hr pantoprazole 40 mg tablet,delayed 40 mg PO DAILY 03/21/23 03/21/23 History release rosuvastatin 20 mg tablet (Crestor) 20 mg PO DAILY 03/21/23 03/21/23 History semaglutide 0.25 mg or 0.5 mg (2 0.5 mg subcut WEEKLY 03/21/23 03/21/23 History mg/3 mL) subcutaneous pen injector (Ozempic) torsemide 5 mg tablet 5 mg PO DAILY 03/21/23 03/21/23 History trazodone 50 mg tablet 50 - 100 mg PO HS PRN Insomnia 03/21/23 03/21/23 History triamcinolone acetonide 0.5 % 1 applic topical BID 03/21/23 03/21/23 History topical cream Laboratory Tests 03/21/23 03/22/23 03/23/23 12:23 16:33 04:33 WBC 10.2 H K/mm3 (4.5-10.0) RBC 2.31 L M/mm3 (4.6-6.20) Hgb 6.8 L* g/dL (14.0-18.0) Hct 22.3 L % (42.0-52.0) MCV 96.5 D fl (80-100) MCH 29.4 pg (26-34) MCHC 30.5 L g/dl (32-36) RDW 15.6 H % (11.5-14.5) Plt Count 228 k/mm3 (150-375) MPV 10.9 H fl (7.4-10.4) Immature Gran % (Auto) 1.2 H % (0-0.5) Neut % (Auto) 64.4 % (45.5-73.1) Lymph % (Auto) 23.8 % (18.3-44.2) [place] % (Auto) 8.3 % (2.6-8.5) Eos % (Auto) 1.0 % (0-4.4) Baso % (Auto) 1.3 H % (0.2-1.2) Lymph # (Auto) 2.43 K/mm3 (0.9-3.2) [place] # (Auto) 0.9 H K/mm3 (0.1-0.6) Eos # (Auto) 0.1 K/mm3 (0-0.3) Baso # (Auto) 0.1 K/mm3 (0.0-0.1) Abs Immat Gran (auto) 0.12 H K/mm3 (0.00-0.031) Absolute Neuts (auto) 6.6 K/mm3 (1.3-6.7) Absolute Nucleated RBC 0.1 H K/mm3 (0.0-0.012) Nucleated RBC % 0.7 H % (0.0-0.2) POC Capillary Glucose 198 H mg/dl (65-105) Blood Type A Positive Antibody Screen Positive Antibody Identificat
[2023-03-23 17:09] LABS: Glucose Point of Care 187 mg/dl (65-105)
[2023-03-23] MEDS: dilTIAZem 100 MG/100 ML 100 MG/100 ML BAG IV CONT (20:31)
[2023-03-24] VITALS (17 sets, daily range): BP systolic 119–147; BP diastolic 55–82; PULSE 82–100; RESP 14–22; TEMP 36.2–37.1; O2SAT 95–100
[2023-03-24] MEDS: DRONEDARONE HCL 400 MG TABLET PO (06:39)
[2023-03-24] MEDS: METOPROLOL SUCCINATE EXT REL 100 MG TABCR PO (08:50)
[2023-03-24 08:55] LABS: Glucose Point of Care 263 mg/dl (65-105)
[2023-03-24] MEDS: PERFLUTREN LIPID MICROSPHERES 1.5 ML VIAL DILUTED TO 10 ML TOTAL VOLUME IV PUSH (09:42)
[2023-03-24 09:46] LABS: Hematocrit 25.6 % (42.0-52.0)
--- NOTE | 2023-03-24 10:05 | ECHO_ITS ---
Patient Info Name: Joe Crook Age: 62 years : 1960 Gender: Male Ht: 72 in Wt: 240 lbs BSA: 2.38 m2 HR: 93 bpm BP: 139 / 58 mmHg Heart Rhythm: Atrial Fibrillation Technical Quality: Fair Exam Date: 03/24/2023 9:05 AM Exam Location: [facility] Patient Status: Inpatient Admit Date: 03/21/2023 Staff Ordering Physician: Jody Pedroza MD Sanding Machine Tender Automatic: Sarina Killian RDCS Attending Provider: Curtis Gonzáles MD Referring Physician: Yovany HANNAH; Exam Type: CA echo dop color flow w con Study Info Indications - cad, elev trop Complete two-dimensional, color flow and Doppler transthoracic echocardiogram is performed with contrast to opacify the left ventricle and to improve the deliniation of the left ventricle endocardial borders. Contrast/Agitated Saline Contrast/Ag. Saline: Definity Amount: 3.00 ml Administered By: Sarina Killian RDCS Existing IV Access: Yes IV Access Condition: patent with no signs of infiltration Summary 1. Technically difficult exam/definity contrast used to improve visualization. 2. Akinesis of the posterior basal segment overall normal left ventricular systolic function. 3. Moderate left atrial enlargement/mild right atrial enlargement. 4. Mild mitral regurgitation. 5. Sclerotic aortic valve which is not stenotic. 6. Atrial fibrillation. Left Ventricle Left ventricular chamber dimension is normal. Left ventricular systolic function is normal, estimated at 65-70%. The left ventricular diastolic function is indeterminate. Right Ventricle Right ventricular chamber dimension is normal. Left Atria Left atrial chamber dimension is moderately enlarged. Right Atria Right atrial chamber dimension is mildly enlarged. Aortic Valve The aortic valve is trileaflet. There is mild aortic valve sclerosis. Pulmonic Valve The pulmonic valve is not well visualized. Mitral Valve The mitral valve has normal leaflets. There is mild mitral valve regurgitation. Tricuspid Valve The tricuspid valve leaflets are not well visualized. There is mild tricuspid valve regurgitation. Pericardium/Pleural The pericardium appears normal. Aorta The aortic root size at the sinus of Valsalva is normal. Left Ventricular Outflow Tract Name Value Normal LVOT 2D LVOT Diameter 2.01 cm LVOT Doppler LVOT Peak Gradient 4 mmHg LVOT Mean Gradient 2 mmHg LVOT VTI 18.55 cm LVOT VTI/AV VTI Ratio 0.69 LVOT Stroke Volume 58.72 ml LVOT CO 5.29 l/min LVOT CI 2.22 L/min/m2 Pulmonic Valve Name Value Normal RVOT Doppler RVOT Peak Gradient 2 mmHg PV Doppler PV Peak Gradient
--- NOTE | 2023-03-24 10:52 | WPDANESPN ---
Anes - Prog Note Post-Op Date/Time: 03/24/23 10:52 Cardiovascular status: normal Respiratory status: normal Airway patency: baseline Mental status: baseline Post-Op hydration status: normal Vital Signs: Last Vital Signs Temp 37.1 C 03/24/23 08:00 Pulse 95 03/24/23 10:00 Resp 14 03/24/23 08:00 BP 125/81 03/24/23 08:00 Pulse Ox 100 03/24/23 08:00 O2 Del Method Room Air 03/24/23 08:00 Pain Score (VAS): 0 I/O: Intake & Output 03/23/23 03/24/23 03/24/23 23:59 07:59 15:59 Intake Total 940 1000 480 Output Total 1100 900 300 Balance -160 100 180 Laboratory Tests 03/24/23 09:41 03/22/23 06:34 03/21/23 03/23/23 03/23/23 12:23 12:18 13:45 Hgb Hct POC Capillary Glucose 187 H 167 H Blood Type A Positive Antibody Screen Positive Antibody Identification Anti-[place] Antigen Identification Rosaline Antigen - NEGATIVE ANTONIO, Poly Interpret Negative Enhanced Crossmatch See Detail 03/23/23 03/24/23 03/24/23 17:01 08:49 09:41 Hgb 8.0 L Hct 25.6 L POC Capillary Glucose 187 H 263 H Blood Type Antibody Screen Antibody Identification Antigen Identification ANTONIO, Poly Interpret Enhanced Crossmatch Post-procedural complaints: none Patient Feedback: Patient satisfied with anesthetic care.
--- NOTE | 2023-03-24 11:31 | IVDEFINITY ---
Prior to administration of IV Definity the patient was educated on the risks and benefits of the imaging enhancing agent including potential adverse side effects. The patient verbalized understanding. Allergies were verified. No exclusion criteria were identified and at least one of the following inclusion criteria were met: 1) physician request, 2) patient technically difficult to image (per the [place] [employer] guidelines of two or more segments not discernable within the apical view), or 3) questionable left ventricular function. ?
--- NOTE | 2023-03-24 12:26 | PM.DS ---
DS: Admitting Diagnosis Discharge Date 03/24/2023 Admitting Diagnosis hematochezia AFib with RVR DS: Discharge Diagnosis Discharge Diagnosis (1) Non-ST elevation OH (NSTEMI): Code(s): I21.4 - Non-ST elevation (NSTEMI) myocardial infarction Status: Acute (2) GI bleed: Code(s): K92.2 - Gastrointestinal hemorrhage, unspecified Status: Acute (3) Paroxysmal atrial fibrillation: Code(s): I48.0 - Paroxysmal atrial fibrillation Status: Acute (4) Type 2 diabetes mellitus: Code(s): E11.9 - Type 2 diabetes mellitus without complications Status: Acute DS: Summary Hospital Course Hospital Course: (1) Type 2 OH (myocardial infarction): Patient had anginal chest pain and has an elevated troponin up to 1.10.? This is a type 2 OH due to his AFib RVR, hypotension and moderate anemia in the face of underlying CAD.? This is not an ACS event.? He is known to have his entire myocardium supplied by his MINOR graft, so understandably in the face of severe tachycardia and anemia he would be ischemic.? Mr. Spring is feeling? better this morning since his heart rate is controlled,? with no further angina.? It is important to avoid further significant tachycardia and anemia in this patient with known significant CAD. --? Agree with blood transfusion -- check echo (2) Atrial fibrillation with rapid ventricular response: History of PAF, in AFib RVR last night which was eventually controlled with Cardizem 5 mg per hour --continue metoprolol 100 mg b.i.d. --resumed Multaq -- resume Eliquis (3) Acute lower gastrointestinal bleeding: Acute GI bleeding associated with hypotension and syncope,? and anemia 1 day after polypectomy.? Followed by Dr. Peoples.? patient underwent colonoscopy which showed internal hemorrhoids but no bleeding. Hemoglobin has improved after 1 unit of transfusion. Given his history of coronary disease will transfuse 1 more unit and then discharge him home. (4) Coronary artery disease: ?Code(s): I25.10 - Atherosclerotic heart disease of [place] coronary artery without angina pectoris ?Status:?Acute ?Assessment and Plan: History of CAD and CABG.? A heart catheterization a couple years ago showed all vein grafts were occluded and the only patent vessel was a MINOR to the Left anterior descending.? (the [place] Left anterior descending is subtotally occluded, mid circumflex and ostial RCA are occluded. )? He has not needed any nitroglycerin for years, until earlier this admission when he had AFib RVR? in the face of severe anemia. patient is clinically stable and is being discharged home. He should follow up with his night cleaner outpatient. Time Spent with Patient Time attestation: Total time spent providing and/or coordinating discharge services: Exam Const: General: cooperative and comfortable; No healthy appearing or confusion Orientation/consciousness: oriented to person, patient oriented x3 and No confusion HENMT: Mouth: Yes moist mucous membranes Eyes: General: appearance abnormal, both eyes Other: Disfigurement of the right eye Neck: Neck: supple and no JVD Thyroid: thyroid normal Carotids: no bruits Resp: Effort & Inspection: normal respiratory effort Auscultation: not clear to auscultation bilaterally and rales (Scattered rales) Cardio: Rate: regular rate and tachycardic Rhythm: regular rhythm and abnormal rhythm irregularly irregular Heart sounds: no murmurs Other: forFeet are cool to touch, but do not appear ischemic. dorsalis pedis pulses are diminished but intact GI: Inspection: normal to inspection GI Palp: No abdominal tenderness Skin: Wounds: wounds noted Other: Well-healed wounds of his lower extremities, arms, right hand, missing a finger on the right hand Neuro: General: oriented to person, patient oriented x3 and No confusion Extrem: Right lower extremity: edema Left lower extremity: edema Other: Trace lower
[2023-03-24 12:27] LABS: Glucose Point of Care 266 mg/dl (65-105)
[2023-03-24] MEDS: INSULIN ASPART (*BKC) 100 UNITS/ML SUB-Q ×2 (13:53→17:20)
[2023-03-24] MEDS: TUBING, BLOOD PLUM PUMP TUBING 1 EACH XX (14:38)
[2023-03-24] MEDS: SODIUM CHLORIDE 0.9% IV 250 ML 30 ML (14:38)
[2023-03-24 17:05] LABS: Glucose Point of Care 235 mg/dl (65-105)
== END 2023-03-24 18:33 | disposition home or self-care (01) | DRG 377 ==
LOC: ANHED 13:34 → ANHIMU 14:06
PROVIDERS: Internal Medicine; Internal Medicine Gastroenterology; Physician Assistant; Admitting Provider Chiropractor; Emergency Provider Family Medicine; PCP Internal Medicine; Visit Provider Hospitalist
PROC: 0DJD8ZZ Inspection of Lower Intestinal Tract, Via Natural or Artificial Opening Endoscopic (ICD-10-PCS; CPT 45378; principal; 2023-03-23 15:30)
DX: K92.2 Gastrointestinal hemorrhage, unspecified (principal); I21.A1 Myocardial infarction type 2; D62 Acute posthemorrhagic anemia; K64.8 Other hemorrhoids; E11.22 Type 2 diabetes mellitus with diabetic chronic kidney disease; E78.5 Hyperlipidemia, unspecified; I12.9 Hypertensive chronic kidney disease with stage 1 through stage 4 chronic kidney disease, or unspecified chronic kidney disease; I48.0 Paroxysmal atrial fibrillation; I25.10 Atherosclerotic heart disease of native coronary artery without angina pectoris; I95.9 Hypotension, unspecified; M10.9 Gout, unspecified; N18.9 Chronic kidney disease, unspecified; R91.8 Other nonspecific abnormal finding of lung field; Z95.1 Presence of aortocoronary bypass graft; Z79.4 Long term (current) use of insulin; Z79.82 Long term (current) use of aspirin; Z79.84 Long term (current) use of oral hypoglycemic drugs; Z79.01 Long term (current) use of anticoagulants; Z90.49 Acquired absence of other specified parts of digestive tract; Z87.891 Personal history of nicotine dependence
CPT/HCPCS: 36415; 36430; 36569; 80048; 80053; 82948; 84484; 85014; 85018; 85025; 85610; 86850; 86880; 86900; 86901; 86902; 86922; 93005; 96374; 99285; A9270; C1751; C8929; J1815; J2270; J2405; J2704; J7030; J7050; J7120; P9016; Q9957